=== PATIENT | male | born 1945 | race Caucasian/White ===

== ENCOUNTER 2022-10-05 22:04 | Outpatient (CLI) | payer MEDICARE, BC | END 2022-10-05 22:05 | disposition critical access hospital (66) | LOC: EMS 22:04 | DX: R53.81 Other malaise (principal); R42 Dizziness and giddiness; R05.9 Cough, unspecified; I95.1 Orthostatic hypotension | CPT/HCPCS: A0425; A0429 ==

== ENCOUNTER 2022-10-05 22:38 | Emergency (ER) | payer MEDICARE, BC ==
[2022-10-05 22:50] VITALS: BP 146/64
--- NOTE | 2022-10-05 23:40 | ED Physician Documentation ---
History of Present Illness - Stated complaint Stated Complaint: LOW BP - Chief complaint Chief Complaint: General - History obtained from History obtained from: Patient, Family (daughter) - Additonal information Additional information: 77-year-old man with history of diabetes, no prior cardiac history per his report and his daughter's report, presented with episode of weakness when getting up from bed causing him to slide down to the side of the bed. Denies head trauma, LOC, injury. Patient states that he has had URI symptoms of nonproductive cough, clear rhinorrhea for the past day. EMS found him to be orthostatic in the field with BP Systolic of 140 going down to 110 after sitting up. Review of Systems Ten Systems: 10 systems reviewed and negative Constitutional: reports: Fatigue. denies: Fever, Chills Ears: denies: Ear pain Nose: reports: Rhinorrhea / runny nose Cardiac: denies: Chest pain / pressure, Palpitations Respiratory: reports: Cough. denies: Dyspnea GI: denies: Nausea Neurologic: reports: Generalized weakness, Other (dizziness) PD PAST MEDICAL HISTORY - Allergies Allergies/Adverse Reactions: Allergies Allergy/AdvReac Type Severity Reaction Status Date / Time No Known Drug Allergies Allergy Verified 10/05/22 22:46 PD ED PE NORMAL - Vitals Vital signs reviewed: Yes - General General: Alert and oriented X 3, No acute distress, Well developed/nourished - HEENT HEENT: Atraumatic, PERRL, EOMI, Moist mucous membranes, Pharynx benign - Neck Neck: Supple, no meningeal sign - Cardiac Cardiac: RRR, No murmur - Respiratory Respiratory: No respiratory distress, Clear bilaterally - Abdomen Abdomen: Non tender, Non distended - Derm Derm: Normal color, Warm and dry - Extremities Extremities: No deformity - Neuro Neuro: Alert and oriented X 3, commercial 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 2-12 intact, No motor deficit, No sensory deficit, Normal speech Eye Opening: Spontaneous Motor: Obeys Commands Verbal: Oriented GCS Score: 15 - Psych Psych: Normal mood, Normal affect Results - Vitals Vitals: Vital Signs - 24 hr 10/05/22 10/05/22 22:46 22:50 Temperature 36.5 C 36.5 C Heart Rate 85 85 Respiratory 15 15 Rate Blood Pressure 146/64 H 146/64 H O2 Saturation 95 95 Oxygen O2 Source Room air - EKG (time done) 2354 Rate: Rate (enter#) (88) Rhythm: NSR [place]: Normal Intervals: Normal [place] QRS: Normal Ischemia: Normal ST segments PD Medical Decision Making - ED course ED course: Patient's vitals were normal in the ED with exception of mild HTN 146/64. No arrhythmia on cardiac monitoring. well appearing with benign exam including neuro exam. ekg and fingerstick noncontributory. discussed option of IVF in the ED but patient opted to go home and hydrate there orally. Plan to f/u with his PCP this week. return precautions given. Departure - Departure Disposition: 01 Home, Self Care Clinical Impression: Weakness, URI (upper respiratory infection), Orthostatic dizziness Condition: Good Instructions: ED Hypotension Orthostatic Comments: You were seen in the emergency department for medical evaluation after sliding out of bed. Your vital signs indicated you may be suffering from orthostatic dizziness which could be a consequence of illness. Make sure that you get lots of rest and stay well-hydrated over the next few days and follow-up with your primary care provider. If you develop chest pain, shortness of breath, have new or worsening symptoms or other concerns, return to the emergency department immediately.
== END 2022-10-06 00:17 | disposition home or self-care (01) ==
LOC: ED 22:38
DX: R53.1 Weakness (principal); R42 Dizziness and giddiness; J06.9 Acute upper respiratory infection, unspecified
CPT/HCPCS: 93005; 99283